=== PATIENT | female | born 1990 | race Caucasian/White ===

== ENCOUNTER 2019-04-24 17:40 | Emergency (ER) | payer BC, SELFPAY ==
[2019-04-24 17:52] VITALS: BP 135/76; PULSE 80; RESP 18; TEMP 36.6; O2SAT 98
--- NOTE | 2019-04-24 17:57 | ED.SKABFB ---
HPI - Skin/Abscess/Foreign Bdy General Chief complaint: Skin/Abscess/Foreign Body Stated complaint: lump under skin on face Source: patient Mode of arrival: ambulatory Limitations: no limitations History of Present Illness HPI narrative: 28-year-old female patient presents to the emergency department with a Um on skin abscess to her right lower chin area nonfluctuant is red tender to touch with no drainage does have a a right submandibular gland that is an inflamed enlarged and tender with no fever or chills. complaint: abscess/boil Onset (ago): day(s) Tetanus up to date: no Location: face Severity: moderate Severity scale (1-10): 7 Quality: aching and constant Pain Consistency: constant Exacerbating factors: none Context: none Associated symptoms: denies other symptoms Treatments prior to arrival: none Related Data Home Medications Medication Instructions Recorded Confirmed medroxyprogesterone [Depo-Provera] 150 mg IM [id number] 04/24/19 04/24/19 Allergies Allergy/AdvReac Type Severity Reaction Status Date / Time No Known Allergies Allergy Verified 04/24/19 17:52 Review of Systems Review of Systems: All systems reviewed & are unremarkable except as noted in HPI and below PMFSH Past Medical History Medical History Patient denies medical problems Social History Social History Smoking packs per day: 0.25 Smoking cigarettes per day: 5.0 Smoking status: Current every day smoker Alcohol intake: never Substance use: never Exam Const: General: no acute distress and alert Nutritional Appearance: well nourished Orientation/consciousness: patient oriented x3 HENMT: Head: normal to inspection Other: Nonfluctuant red tender area in the right lower chin area with no drainage is warm and tender to touch proximally 2 to 3 cm in diameter Eyes: Conjunctivae: conjunctivae normal Pupils: Equal, round and reactive pupils present Neck: Neck: normal visual inspection Chest: Chest palpation & inspection: normal inspection of the chest Resp: Effort & Inspection: normal respiratory effort Cardio: Rate: regular rate Rhythm: regular rhythm Back/Spine/Pelvis: Back: no CVA tenderness Skin: General skin exam: normal color Rashes: no rashes Neuro: General: patient oriented x3 and moves all extremities Course Vital Signs Vital signs: Vital Signs Temperature 36.6 C 04/24/19 17:52 Pulse Rate 80 04/24/19 17:52 Respiratory Rate 18 04/24/19 17:52 Blood Pressure 135/76 04/24/19 17:52 Pulse Oximetry 98 04/24/19 17:52 Temperature 36.6 C 04/24/19 17:52 Pulse Rate 80 04/24/19 17:52 Respiratory Rate 18 04/24/19 17:52 Blood Pressure 135/76 04/24/19 17:52 Pulse Oximetry 98 04/24/19 17:52 Critical Care Time Critical Care Time Critical Care Time: No Discharge Plan Discharge Clinical Impression: Abscess of skin or subcutaneous tissue Qualifiers: Site of cutaneous abscess: face Qualified Code(s): L02.01 - Cutaneous abscess of face Cellulitis Qualifiers: Site of cellulitis: face Qualified Code(s): L03.211 - Cellulitis of face Patient Disposition: Home, Self-Care Condition: Stable Instructions: Antibiotic Form, Cellulitis (ED), Abscess (ED) Additional Instructions: warm compress to affected area on face take medicine as prescribed and follow-up with primary care physician if symptoms persist or worsen. Prescriptions: New amoxicillin-pot clavulanate [Augmentin] 875-125 mg tablet 1 tablet PO Q12H Qty: 20 RF: 0 naproxen 500 mg tablet 500 mg PO BID Qty: 14 RF: 0 No Action medroxyprogesterone [Depo-Provera] 150 mg/mL Syringe 150 mg IM [id number] RF: 0 Follow-up/Referrals: PHYSICIAN NOT ON STAFF,NONSTAFF [Primary Care Provider] - Time of Disposition: 18:03
[2019-04-24] MEDS: KETOROLAC (*BKC) 60 MG/2 ML VIAL IM (18:03)
[2019-04-24] MEDS: AMOXICILLIN/CLAVULANATE K 875-125 MG TAB 1 TABLET PO (18:05)
[2019-04-24 18:20] VITALS: BP 128/82; PULSE 80; RESP 18; O2SAT 98
== END 2019-04-24 18:30 | disposition home or self-care (01) ==
PROVIDERS: Emergency Provider Emergency Medicine
DX: L02.01 Cutaneous abscess of face (principal); L03.211 Cellulitis of face
CPT/HCPCS: 96372; 99283; A9270; J1885

== ENCOUNTER 2020-02-27 01:45 | Emergency (ER) | payer BC, SELFPAY ==
[2020-02-27] MEDS: KETOROLAC (*BKC) 60 MG/2 ML VIAL IM (01:57)
--- NOTE | 2020-02-27 01:57 | ED.DENTAL ---
HPI - Dental/Oral General Stated complaint: toothpain Source: patient History of Present Illness HPI Narrative: this is a 29-year-old female that presents with some dental pain has a history of dental caries in the right upper and lower molar area with surrounding gum inflammation with no fever chills no shortness of breath no nausea vomiting or abdominal pain. MD Complaint: tooth pain Teeth map: 1. Dental decay with some surrounding gum inflammation 2. dental decay with surrounding gum inflammation Onset (ago): month(s) Duration: constant Severity: severe Severity scale (1-10): 10 Relieving factors: NSAIDs Exacerbating factors: chewing and cold Context: history of dental caries Associated symptoms: gum swelling Related Data Home Medications Medication Instructions Recorded Confirmed medroxyprogesterone [Depo-Provera] 150 mg IM [id number] 04/24/19 04/24/19 Allergies Allergy/AdvReac Type Severity Reaction Status Date / Time No Known Allergies Allergy Verified 04/24/19 17:52 Review of Systems Review of Systems: All systems reviewed & are unremarkable except as noted in HPI and below PMFSH Past Medical History Medical History (Updated 02/27/20 @ 02:01 by Buck Tomlinson MD) Patient denies medical problems Social History Social History Smoking packs per day: 0.25 Smoking cigarettes per day: 5.0 Smoking status: Current every day smoker Alcohol intake: never Substance use: never Exam Const: General: no acute distress and alert Orientation/consciousness: patient oriented x3 HENMT: Head: normal to inspection Eyes: Conjunctivae: conjunctivae normal Pupils: Equal, round and reactive pupils present EOM: EOMs intact bilaterally Neck: Neck: normal visual inspection, no lymphadenopathy and no meningeal signs Chest: Chest palpation & inspection: normal inspection of the chest Resp: Effort & Inspection: normal respiratory effort Cardio: Rate: regular rate GI: GI Palp: Yes Soft to palpation : General: Yes no CVA tenderness Back/Spine/Pelvis: Back: no CVA tenderness Skin: General skin exam: normal color Rashes: no rashes Neuro: General: patient oriented x3 Extrem: General: normal to inspection Psych: Mental Status: mental status grossly normal Course Course Emergency Course: Reassessment of patient dental pain has improved with Toradol Critical Care Time Critical Care Time Critical Care Time: No Discharge Plan Discharge Clinical Impression: Pain, dental, Abscess, dental Patient Disposition: Home, Self-Care Condition: Stable Instructions: Antibiotic Form, Dental Abscess (ED) Additional Instructions: take medicine as prescribed and follow-up with primary care physician or dentist soon as possible for further evaluation and treatment. Prescriptions: New amoxicillin 500 mg tablet 500 mg PO TID Qty: 30 RF: 0 tramadol [Ultram] 50 mg tablet 50 mg PO Q6H PRN (Reason: pain) Qty: 20 RF: 0 No Action medroxyprogesterone [Depo-Provera] 150 mg/mL Syringe 150 mg IM [id number] RF: 0 amoxicillin-pot clavulanate [Augmentin] 875-125 mg tablet 1 tablet PO Q12H Qty: 20 RF: 0 naproxen 500 mg tablet 500 mg PO BID Qty: 14 RF: 0 Follow-up/Referrals: Kenyon,Sean Huitron MD [Primary Care Provider] - Time of Disposition: 02:02
[2020-02-27 02:00] VITALS: BP 137/77; PULSE 73; RESP 20; TEMP 36.7; O2SAT 98
[2020-02-27] MEDS: AMOXICILLIN 500 MG CAPSULE PO (02:10)
[2020-02-27 02:13] VITALS: BP 138/77; PULSE 73; RESP 20; O2SAT 98
== END 2020-02-27 02:16 | disposition home or self-care (01) ==
PROVIDERS: Emergency Provider Emergency Medicine; PCP Internal Medicine Pulmonary Disease
DX: K08.89 Other specified disorders of teeth and supporting structures (principal); K04.7 Periapical abscess without sinus; F17.200 Nicotine dependence, unspecified, uncomplicated
CPT/HCPCS: 96372; 99283; A9270; J1885

== ENCOUNTER 2020-06-06 03:22 | Emergency (ER) | payer BC, SELFPAY ==
--- NOTE | 2020-06-06 03:47 | ED.DENTAL ---
HPI - Dental/Oral General Chief complaint: Dental/Oral Stated complaint: TOOTH ACHE Time Seen by Provider: 06/06/20 03:48 Source: patient Mode of arrival: ambulatory Limitations: no limitations History of Present Illness HPI Narrative: 29-year-old woman with a history of dental caries comes in today complaining of pain and swelling in her right upper molar. She states that she has had no difficulty swallowing, difficulty breathing, fever denies any facial swelling. She states gum around the tooth are swollen. MD Complaint: tooth pain Onset (ago): week(s) (1-2) Duration: constant Severity: severe Relieving factors: nothing Exacerbating factors: chewing Context: history of dental caries and poor dental care Associated symptoms: gum swelling Treatment prior to arrival: oral analgesic Related Data Allergies Allergy/AdvReac Type Severity Reaction Status Date / Time No Known Allergies Allergy Verified 04/24/19 17:52 Review of Systems Constitutional: Constitutional: Denies chills and Denies fever(s) Eyes: Eyes: Denies change in vision and Denies photophobia ENT: Denies dysphagia, Denies nasal congestion and Denies sore throat Cardiovascular: Cardiovascular: Denies chest pain and Denies radiating jaw, neck or arm pain Respiratory: Respiratory: Denies cough and Denies dyspnea Gastrointestinal: Gastrointestinal: Denies nausea and Denies vomiting Integumentary/Breasts: Skin/Breast: Denies pruritus, Denies erythema and Denies rash Neurologic: Denies headache(s) and Denies numbness Hematologic/Lymphatic: Hematologic/Lymphatic: Denies easy bleeding and Denies easy bruising Allergic/Immunologic: Allergic/Immunologic: Denies lip swelling and Denies throat swelling PMF Past Medical History Medical History Patient denies medical problems Surgical History Surgical History Hx of cholecystectomy Social History Social History Smoking packs per day: 0.25 Smoking cigarettes per day: 5.0 Smoking status: Current every day smoker Alcohol intake: never Substance use: never Exam Const: General: healthy appearing and alert Orientation/consciousness: patient oriented x3 Limitations: no limitations Other: [id number] acute distress HENMT: Head: normal to inspection Ears: external ears normal, TM's normal bilaterally and EAC's normal General nose exam: Normal nares present Face and sinus: normal facial exam Mouth: Yes moist mucous membranes Throat: posterior oropharynx normal Other: Gross decay of many of her molars. Molar 1. Shows decay below the gum line and surrounding gingival swelling without erythema or drainage. Eyes: Conjunctivae: conjunctivae normal Pupils: Equal, round and reactive pupils present EOM: EOMs intact bilaterally Neck: Neck: normal visual inspection and no lymphadenopathy Resp: Effort & Inspection: normal respiratory effort Auscultation: no crackles, no rales and no rhonchi Cardio: Rate: regular rate Rhythm: regular rhythm Heart sounds: no murmurs Skin: General skin exam: normal color, no jaundice and no pallor Rashes: no rashes Neuro: General: patient oriented x3, moves all extremities, no focal motor deficits and CN's II-XI intact bilaterally Speech: normal speech Gait exam (Neuro): Normal gait present Extrem: General: normal to inspection and no clubbing, cyanosis or edema Psych: Appearance: grossly normal and well kempt Mental Status: mental status grossly normal Affect: normal affect Attitude: cooperative Thought content: Yes Normal thought content present Discharge Plan Discharge Clinical Impression: Dental caries Patient Disposition: Home, Self-Care Condition: Stable Instructions: Antibiotic Form, Toothache (ED) Additional Instructions: Follow-up with your dentist for further t
[2020-06-06 03:53] VITALS: BP 133/78; PULSE 87; RESP 18; TEMP 36.8; O2SAT 100
[2020-06-06 04:05] VITALS: BP 125/78; PULSE 70; RESP 18; O2SAT 100
[2020-06-06] MEDS: AMOXICILLIN/CLAVULANATE K 875-125 MG TAB 1 TABLET PO (04:05)
== END 2020-06-06 04:08 | disposition home or self-care (01) ==
PROVIDERS: Emergency Provider Emergency Medicine
DX: K02.9 Dental caries, unspecified (principal)
CPT/HCPCS: 99283; A9270

== ENCOUNTER 2020-10-02 06:59 | Emergency (ER) | payer BC, SELFPAY ==
[2020-10-02 07:05] VITALS: BP 122/92; PULSE 113; RESP 20; TEMP 37.2; O2SAT 96
--- NOTE | 2020-10-02 07:48 | ED.URI ---
HPI - URI/Sore Throat General Chief Complaint: Upper Respiratory Infection Stated Complaint: throat pain and possible swelling, body tingling Source: patient Mode of arrival: ambulatory Limitations: no limitations History of Present Illness HPI Narrative: is a 29-year-old female with a multiple day history of sore throat with some having pain with swallowing and having a tender submandibular glands with no shortness of breath no fever chills no nausea vomiting no recent sick contacts, no chest pain or shortness breath. MD elicited complaint: cough and sore throat Onset (ago): day(s) Consistency: constant Severity: moderate Related Data Allergies Allergy/AdvReac Type Severity Reaction Status Date / Time No Known Allergies Allergy Verified 04/24/19 17:52 Review of Systems Review of Systems: All systems reviewed & are unremarkable except as noted in HPI and below PMFSH Past Medical History Medical History Patient denies medical problems Surgical History Surgical History Hx of cholecystectomy Social History Social History Smoking packs per day: 0.25 Smoking cigarettes per day: 5.0 Smoking status: Current every day smoker Alcohol intake: never Substance use: never Exam Const: General: no acute distress and alert Orientation/consciousness: patient oriented x3 HENMT: Head: normal to inspection Other: Bilateral tonsillar enlargement and erythema with some and DB Alert gland tenderness and enlargement Eyes: Conjunctivae: conjunctivae normal Pupils: Equal, round and reactive pupils present Neck: Neck: normal visual inspection, no lymphadenopathy and no meningeal signs Chest: Chest palpation & inspection: normal inspection of the chest Resp: Effort & Inspection: normal respiratory effort Cardio: Rate: regular rate GI: GI Palp: Yes Soft to palpation : General: Yes no CVA tenderness Back/Spine/Pelvis: Back: no CVA tenderness Skin: General skin exam: normal color Rashes: no rashes Neuro: General: patient oriented x3, moves all extremities, no meningeal signs and no focal motor deficits Extrem: General: normal to inspection Psych: Appearance: grossly normal Affect: normal affect Course Course Emergency Course: strep test negative was relayed to the patient, but with some the symptoms will start antibiotic. Vital Signs Vital signs: Vital Signs Temperature 37.2 C 10/02/20 07:05 Pulse Rate 113 H 10/02/20 07:05 Respiratory Rate 20 10/02/20 07:05 Blood Pressure 122/92 H 10/02/20 07:05 Pulse Oximetry 96 10/02/20 07:05 Temperature 37.2 C 10/02/20 07:05 Pulse Rate 113 H 10/02/20 07:05 Respiratory Rate 20 10/02/20 07:05 Blood Pressure 122/92 H 10/02/20 07:05 Pulse Oximetry 96 10/02/20 07:05 MDM - URI/Sore Throat Lab Data Labs: Lab Results 10/02/20 Range/Units 07:26 Grp A Beta Strep Ag Negative Critical Care Time Critical Care Time Critical Care Time: No Discharge Plan Discharge Clinical Impression: Pharyngitis Qualifiers: Pharyngitis/tonsillitis etiology: other specified organisms Qualified Code(s): J02.8 - Acute pharyngitis due to other specified organisms Patient Disposition: Home, Self-Care Condition: Stable Instructions: Antibiotic Form, Pharyngitis (ED) Additional Instructions: advised take medicine as prescribed Prescriptions: New amoxicillin-pot clavulanate [Augmentin] 875-125 mg tablet 1 tablet PO Q12H Qty: 20 RF: 0 Follow-up/Referrals: UNKNOWN,DOCTOR [Primary Care Provider] - Time of Disposition: 07:52
[2020-10-02 07:56] VITALS: RESP 17
== END 2020-10-02 07:56 | disposition home or self-care (01) ==
PROVIDERS: Emergency Provider Emergency Medicine
DX: J02.8 Acute pharyngitis due to other specified organisms (principal)
CPT/HCPCS: 87081; 87880; 99283

== ENCOUNTER 2020-11-14 08:56 | Emergency (ER) | payer BC, SELFPAY ==
--- NOTE | ~2020-11-14 | CT_ITS ---
EXAMINATION: CT diagnostic chest wo con DATE: 11/14/2020 10:41 INDICATION: Fever and shortness of breath TECHNIQUE: Computed tomography (CT) of the chest was performed without intravenous contrast. Automate d exposure control and iterative reconstruction technique were employed. Exam dose: 210.03 mGy-cm to madeline exam DLP. COMPARISON: None FINDINGS: No pulmonary infiltrate or consolidation or pulmonary mass lesion. Normal heart size. No hilar or mediastinal mass lesion or lymphadenopathy. No thoracic aortic aneurys m. No pericardial or pleural effusion. Status post cholecystectomy. Included skeletal structures are unremarkable IMPRESSION: No significant abnormality Status post cholecystectomy Reviewed, dictated and finalized at [facility]. Reviewed, dictated and finalized at location [facility].
[2020-11-14 09:13] VITALS: BP 122/74; PULSE 130; TEMP 39.4; O2SAT 95
[2020-11-14] MEDS: ACETAMINOPHEN 325 MG TABLET 650 MG PO (09:40)
[2020-11-14] MEDS: IBUPROFEN 400 MG TABLET 800 MG PO (09:45)
[2020-11-14] MEDS: SODIUM CHLORIDE 0.9% IV 1,000 ML 999 ML IV CONT (09:52)
[2020-11-14 09:56] LABS: Basophils Absolute Auto 0.04 K/mm3 (0.00-0.10); Basophils Percent Auto 0.2 % (0.0-1.0); Eosinophils Absolute Auto 0.07 K/mm3 (0.02-0.50); Eosinophils Percent Auto 0.4 % (1.0-6.0); Hematocrit 44.6 % (35.0-49.0); Hemoglobin 15.5 g/dL (12.0-15.0); Immature Granulocyte Absolute 0.11 K/mm3 (0.00-0.00); Immature Granulocyte Percent A 0.6 % (0.0-0.0); Lymphocytes Absolute Auto 1.65 K/mm3 (1.10-4.50); Lymphocytes Percent Auto 9.4 % (18.0-42.0); Mean Corpuscular HGB Conc 34.8 g/dL (32.0-36.0); Mean Corpuscular Hemoglobin 30.9 pg (27.0-31.0); Mean Corpuscular Volume 88.8 fL (78.0-102.0); Mean Platelet Volume 11.3 fl (9.2-11.8); Monocytes Absolute Auto 1.47 K/mm3 (0.10-0.90); Monocytes Percent Auto 8.4 % (2.0-11.0); Neutrophils Absolute Auto 14.2 K/mm3 (1.7-7.2); Platelet Count Result 361 K/mm3 (150-420); Red Blood Count 5.02 M/mm3 (4.20-5.40); Red Cell Distribution Width 12.5 % (11.6-14.4); White Blood Count 17.5 K/mm3 (4.8-10.8)
[2020-11-14] MEDS: KETOROLAC (*BKC) 60 MG/2 ML VIAL IM (10:10)
[2020-11-14 10:18] LABS: Add Urine Microscopic? YES; Appearance Urine Clear (Clear); Bilirubin Urine Negative (Negative); Blood Urine 3+ (Negative); Color Urine Light Yellow (Yellow); Glucose Urine UA Negative (Negative); Ketones Urine Negative (Negative); Leukocyte Esterase Ur 1+ (Negative); Nitrate Urine Positive (Negative); Protein Urine Trace (Negative); Specific Grav Ur 1.015 (1.010-1.020); Urobilinogen Urine 0.2 mg/dL (0.2-1.0)
[2020-11-14 10:24] LABS: Alanine Aminotransferase 26 U/L (14-59); Albumin Level 3.9 g/dL (3.4-5.0); Alkaline Phosphatase 80 U/L (46-116); Anion Gap 13 mmol/L (8-16); Bilirubin,Total 0.7 mg/dL (0.00-1.00); Blood Urea Nitrogen 8 mg/dL (7-18); Calcium 9.2 mg/dL (8.5-10.1); Carbon Dioxide 24 mmol/L (21-32); Chloride 100 mmol/L (98-108); Estimated CRCL calculation 96 ml/min; Estimated Glomerular Filt Rate > 60; Glucose 94 mg/dL (70-99); Osmolality Calculated 282 mOsm/kg (285-295); Sodium 137 mmol/L (136-145); Total Protein 8.7 g/dL (6.4-8.2)
[2020-11-14 10:26] LABS: Lactic Acid Reflex 0.8 mmol/L (0.4-2.0); Potassium 4.2 mmol/L (3.5-5.1)
[2020-11-14 10:27] LABS: Aspartate Amino Transferase 26 U/L (15-37)
[2020-11-14 10:28] LABS: Bacteria Urine 4+ /hpf; RBC Urine 21-50 /hpf (0-2); Squamous Epithelial Cell Urine Rare /hpf (Few)
[2020-11-14 10:29] LABS: Pregnancy On Board Control Positive; Urine Pregnancy Test Negative
[2020-11-14 10:33] LABS: SARS-CoV-2 Ag Negative (Negative)
[2020-11-14 10:49] VITALS: BP 94/48; PULSE 98; RESP 16; TEMP 37.7; O2SAT 97
--- NOTE | 2020-11-14 11:03 | ED.FEVER ---
HPI - Fever General Chief Complaint: Fever Stated Complaint: fever, body aches Time Seen by Provider: 11/14/20 08:59 Source: patient and RN notes reviewed Mode of arrival: ambulatory Limitations: no limitations History of Present Illness MD elicited complaint: fever Onset (ago): hour(s) (12) Exacerbating factors: nothing Relieving factors: acetaminophen and ibuprofen Associated symptoms: chills and back/flank pain Treatments prior to arrival fever: acetaminophen and ibuprofen Related Data Home Medications Medication Instructions Recorded Confirmed etonogestrel [Nexplanon] 1 implant SUBDERMAL ONCE 11/14/20 11/14/20 Allergies Allergy/AdvReac Type Severity Reaction Status Date / Time No Known Allergies Allergy Verified 04/24/19 17:52 Review of Systems Review of Systems: All systems reviewed & are unremarkable except as noted in HPI and below Constitutional: Constitutional: Reports as per HPI and Reports no additional constitutional complaints Eyes: Eyes: Reports as per HPI and Reports no additional eye complaints ENT: Reports system reviewed and no additional complaints, except as documented and Reports as per HPI Cardiovascular: Cardiovascular: Reports as per HPI and Reports no additional cardiovascular complaints Respiratory: Respiratory: Reports as per HPI and Reports no additional respiratory complaints Gastrointestinal: Gastrointestinal: Reports as per HPI and Reports no additional gastrointestinal complaints Genitourinary: Genitourinary: Reports no additional female genitourinary complaints and Reports as per HPI Musculoskeletal: Musculoskeletal: Reports no additional musculoskeletal complaints and Reports as per HPI Integumentary/Breasts: Skin/Breast: Reports system reviewed and no additional complaints, except as docu and Reports as per HPI Neurologic: Reports system reviewed and no additional complaints, except as documented and Reports as per HPI Psychiatric: Psychiatric: Reports no additional psychiatric complaints and Reports as per HPI Endocrine: Endocrine: Reports no additional endocrine complaints and Reports as per HPI Hematologic/Lymphatic: Hematologic/Lymphatic: Reports no additional hematologic/lymphatic complaints and Reports as per HPI Allergic/Immunologic: Allergic/Immunologic: Reports no additional allergic/immunologic complaints and Reports as per HPI PMF Past Medical History Medical History (Updated 11/14/20 @ 11:38 by Ling Saucedo MD) Medical history non-contributory Patient denies medical problems Surgical History Surgical History Hx of cholecystectomy Social History Social History Smoking packs per day: 0.25 Smoking cigarettes per day: 5.0 Smoking status: Current every day smoker Alcohol intake: never Substance use: never Exam Const: General: no acute distress and alert Orientation/consciousness: patient oriented x3 Limitations: no limitations HENMT: Head: normal to inspection Ears: external ears normal and TM's normal bilaterally General nose exam: Normal external nose present and Normal nares present Mouth: Yes lip normal and Yes moist mucous membranes Teeth and gingiva: dentition normal Eyes: Conjunctivae: conjunctivae normal Pupils: Equal, round and reactive pupils present EOM: EOMs intact bilaterally Neck: Neck: normal visual inspection and no lymphadenopathy Chest: Chest palpation & inspection: normal inspection of the chest Resp: Effort & Inspection: normal respiratory effort Auscultation: clear to auscultation bilaterally and wheezes Cardio: Rate: regular rate GI: GI Palp: Yes Soft to palpation Auscultation: normal bowel sounds : General: Yes bladder normal to palpation and Yes no CVA tenderness External Female Exam: normal external appearance Back/Spine/Pelvis: Back: no CVA tenderness Skin: General skin
[2020-11-14] MEDS: SODIUM CHLORIDE 0.9% IV 500 ML 999 ML IV CONT (11:13)
[2020-11-14 11:14] VITALS: BP 111/65
== END 2020-11-14 12:39 | disposition home or self-care (01) ==
PROVIDERS: Emergency Provider Emergency Medicine
DX: N39.0 Urinary tract infection, site not specified (principal); Z20.822 Contact with and (suspected) exposure to COVID-19
CPT/HCPCS: 36415; 71250; 80053; 81001; 81025; 83605; 85025; 87040; 87426; 96361; 96365; 96372; 99283; 99284; A9270; C9803; J0696; J1885; J7030; J7040

== ENCOUNTER 2020-11-14 21:49 | Emergency (ER) | payer BC, SELFPAY ==
--- NOTE | ~2020-11-14 | CT_ITS ---
EXAMINATION: CT chest abdomen pelvis wo con DATE: 11/14/2020 23:20 INDICATION: Urinary tract infection with increasing costovertebral angle pain radiating to the chest. TECHNIQUE: Computed tomography (CT) of the chest, abdomen, and pelvis was performed with 100 mL Omnip aque-350 intravenous contrast. Automated exposure control and iterative reconstruction technique were employed. The dose-length product was 1126.96 mGy-cm. 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 No pneumonia, pulmonary edema or pleural effusion. Heart size is normal. No pericardial e ffusion. Thoracic aorta is normal in caliber. No pathologically enlarged thoracic lymphadenopathy. Albert paola are unremarkable. ABDOMEN/PELVIS CT: Mild diffuse hepatic steatosis. Cholecystectomy clips at the gallbladder fossa. Spleen, pancreas and bilateral adrenal glands are normal. Kidneys and ureters are normal with no urolithiasis or hydroneph rosis. There is a minimal amount of fluid extending along the anterior left pararenal space. Bladder is normal. Bowels including the appendix are normal. Bladder, uterus and bilateral adnexa are unremar kable. No free intraperitoneal gas or fluid. No pathologically enlarged abdominal or pelvic lymphaden opathy. Bones are unremarkable. IMPRESSION: 1. Minimal fluid extending along the anterior left pararenal space which given the provided history o f urinary tract infection and increasing to the angle pain could be related to ascending urinary trac t infection. Reviewed, dictated and finalized at location [facility]. IMPRESSION: 1. Minimal fluid extending along the anterior left pararenal space which given the provided history of urinary tract infection and increasing to the angle radha n could be related to ascending urinary tract infection.
[2020-11-14 22:45] VITALS: BP 131/76; PULSE 121; RESP 20; TEMP 37; O2SAT 97
[2020-11-14] MEDS: KETOROLAC (*BKC) 60 MG/2 ML VIAL IM (23:36)
--- NOTE | 2020-11-15 00:02 | ED.ABDPAIN ---
HPI - Abdominal Pain General Chief Complaint: Urogenital-Female Stated Complaint: worsening symptoms Time Seen by Provider: 11/14/20 21:52 Source: patient and RN notes reviewed Mode of arrival: ambulatory Limitations: no limitations History of Present Illness MD elicited complaint: flank pain Pertinent past history: other (UTI) Onset (ago): hour(s) (12) Pain Consistency: constant Location: L flank and R flank Severity: moderate Pain scale (0-10): 9 Quality: cramping and aching Radiation: L flank and R flank Migration to: no migration Exacerbating factors: nothing Relieving factors: nothing Associated symptoms: nausea Treatments prior to arrival: NSAIDs Related Data Home Medications Medication Instructions Recorded Confirmed etonogestrel [Nexplanon] 1 implant SUBDERMAL ONCE 11/14/20 11/14/20 Allergies Allergy/AdvReac Type Severity Reaction Status Date / Time No Known Allergies Allergy Verified 04/24/19 17:52 Review of Systems Review of Systems: All systems reviewed & are unremarkable except as noted in HPI and below PMFSH Past Medical History Medical History (Updated 11/15/20 @ 00:29 by Ling Saucedo MD) Medical history non-contributory Patient denies medical problems Renal calculus or stone Surgical History Surgical History Hx of cholecystectomy Social History Social History Smoking packs per day: 0.25 Smoking cigarettes per day: 5.0 Smoking status: Current every day smoker Alcohol intake: never Substance use: never Exam Const: General: no acute distress and alert Orientation/consciousness: patient oriented x3 HENMT: Head: normal to inspection Ears: external ears normal and TM's normal bilaterally General nose exam: Normal external nose present and Normal nares present Mouth: Yes lip normal and Yes moist mucous membranes Teeth and gingiva: dentition normal Eyes: Conjunctivae: conjunctivae normal Pupils: Equal, round and reactive pupils present EOM: EOMs intact bilaterally Neck: Neck: normal visual inspection and no lymphadenopathy Chest: Chest palpation & inspection: normal inspection of the chest Resp: Effort & Inspection: normal respiratory effort Auscultation: clear to auscultation bilaterally Cardio: Rate: regular rate Rhythm: regular rhythm GI: GI Palp: Yes Soft to palpation Percussion: Yes other (minimal left and right flank tenderness. no acute CVA tenderness.) Auscultation: normal bowel sounds : General: Yes bladder normal to palpation and Yes no CVA tenderness External Female Exam: normal external appearance Back/Spine/Pelvis: Back: no CVA tenderness Skin: General skin exam: normal color Rashes: no rashes Neuro: General: patient oriented x3, moves all extremities, no focal motor deficits and CN's II-XI intact bilaterally Extrem: General: normal to inspection Psych: Mental Status: mental status grossly normal Affect: normal affect Attitude: cooperative Course Course Emergency Course: Pt had less pain and was stable in the ED. Reevaluation(s) Date: 11/14/20 Time: 23:38 Vital Signs Vital signs: Vital Signs Temperature 37.0 C 11/14/20 22:45 Pulse Rate 121 H 11/14/20 22:45 Respiratory Rate 20 11/14/20 22:45 Blood Pressure 131/76 11/14/20 22:45 Pulse Oximetry 97 11/14/20 22:45 Temperature 37.0 C 11/14/20 22:45 Pulse Rate 121 H 11/14/20 22:45 Respiratory Rate 20 11/14/20 22:45 Blood Pressure 131/76 11/14/20 22:45 Pulse Oximetry 97 11/14/20 22:45 MDM - Abdominal Pain Differential Diagnosis Differential diagnosis: Likely abdominal pain, acute appendicitis and calculus of kidney Medical Records Attestation: I reviewed the patient's medical records. Imaging Data Radiologist's impression: See report. Critical Care Time Critical Care Time Critical Care Time: No Total Critical Care Time:
[2020-11-15] MEDS: SODIUM CHLORIDE 0.9% IV 1,000 ML 999 ML IV CONT (00:06)
[2020-11-15 00:48] VITALS: TEMP 36.3
== END 2020-11-15 00:57 | disposition home or self-care (01) ==
PROVIDERS: Emergency Provider Emergency Medicine
DX: N20.0 Calculus of kidney (principal)
CPT/HCPCS: 36415; 71250; 74176; 80053; 81001; 81025; 83605; 85025; 87040; 87426; 96360; 96361; 96365; 96372; 99283; 99284; A9270; C9803; J0696; J1885; J7030; J7040

== ENCOUNTER 2021-04-11 07:34 | Emergency (ER) | payer BC, SELFPAY ==
[2021-04-11 07:35] VITALS: BP 134/82; PULSE 89; RESP 16; RESP 20; TEMP 35.5; O2SAT 99
--- NOTE | 2021-04-11 07:50 | ED.FEVER ---
HPI - Fever General Chief Complaint: Fever Stated Complaint: Bodyaches,cough,chills Time Seen by Provider: 04/11/21 07:50 Source: patient Mode of arrival: ambulatory Limitations: no limitations History of Present Illness HPI Narrative: 30-year-old previously woman comes in today complaining of fever, body aches, cough and chills that started yesterday. Patient states that she has had no sick exposures and is vaccinated for COVID. She denies shortness of breath, productive cough, nasal congestion, sore throat, ageusia, chest pain, abdominal pain, spotting, dysuria, vomiting, and diarrhea. She has not had the influenza vaccine. MD elicited complaint: fever Onset (ago): day(s) (1) Exacerbating factors: nothing Relieving factors: nothing Associated symptoms: chills and cough Treatments prior to arrival fever: none Related Data Home Medications Medication Instructions Recorded Confirmed Daily 1 dose PO DAILY 04/11/21 04/11/21 Allergies Allergy/AdvReac Type Severity Reaction Status Date / Time No Known Allergies Allergy Verified 04/11/21 07:50 Review of Systems Review of Systems: All systems reviewed & are unremarkable except as noted in HPI and below Constitutional: Constitutional: Reports chills, Reports fatigue and Reports fever(s) Eyes: Eyes: Denies change in vision and Denies photophobia ENT: Denies nasal congestion and Denies sore throat Cardiovascular: Cardiovascular: Denies chest pain and Denies radiating jaw, neck or arm pain Respiratory: Respiratory: Reports cough and Denies dyspnea Gastrointestinal: Gastrointestinal: Denies abdominal pain, Denies diarrhea and Denies vomiting Genitourinary: Genitourinary: Denies abnormal vaginal bleeding, Denies nocturia and Denies dysuria Musculoskeletal: Musculoskeletal: Reports myalgias, Denies arthralgias, Denies joint swelling and Denies muscle cramps Integumentary/Breasts: Skin/Breast: Denies pruritus, Denies erythema and Denies rash Neurologic: Denies vertigo, Denies dizziness, Denies syncope and Denies weakness Allergic/Immunologic: Allergic/Immunologic: Denies lip swelling and Denies throat swelling PMFSH Past Medical History Medical History Medical history non-contributory Patient denies medical problems Renal calculus or stone Surgical History Surgical History Hx of cholecystectomy Social History Social History Smoking packs per day: 0.25 Smoking cigarettes per day: 5.0 Smoking status: Current every day smoker Alcohol intake: never Substance use: never Exam Const: General: healthy appearing, no acute distress and alert Orientation/consciousness: patient oriented x3 HENMT: Head: normal to inspection Ears: external ears normal, TM's normal bilaterally and EAC's normal General nose exam: Normal nares present Face and sinus: normal facial exam Mouth: Yes moist mucous membranes Throat: posterior oropharynx normal Eyes: Conjunctivae: conjunctivae normal Pupils: Equal, round and reactive pupils present EOM: EOMs intact bilaterally Resp: Effort & Inspection: normal respiratory effort and not labored Auscultation: clear to auscultation bilaterally, no rales, no rhonchi and no wheezes Cardio: Rate: regular rate Rhythm: regular rhythm Heart sounds: no murmurs Skin: General skin exam: normal color, no jaundice and no pallor Rashes: no rashes Neuro: General: patient oriented x3, moves all extremities, no focal motor deficits and CN's II-XI intact bilaterally Speech: normal speech Gait exam (Neuro): Normal gait present Extrem: General: normal to inspection and no clubbing, cyanosis or edema Psych: Appearance: grossly normal and well kempt Mental Status: mental status grossly normal Affect: normal affect Attitude: cooperative Thought content: Yes Normal
[2021-04-11 08:46] LABS: Influenza A QL RT-PCR Negative (Negative); Influenza B QL RT-PCR Negative (Negative); SARS-CoV-2 RNA PCR Positive (Negative)
[2021-04-11 09:17] VITALS: BP 148/91; PULSE 87; RESP 20; O2SAT 96
== END 2021-04-11 09:15 | disposition home or self-care (01) ==
PROVIDERS: Emergency Provider Emergency Medicine
DX: U07.1 COVID-19 (principal)
CPT/HCPCS: 87502; 99282; 99283; C9803; U0003; U0005